=== PATIENT | female | born 1945 | race Hispanic/Latino ===

== ENCOUNTER → 2018-08-18 | Outpatient (CLI) | payer OTHER, MEDICARE ==
[~2018-08-18] MED LIST: ALBU8.5H8 IH; ASPI81TA40 PO; CALC-1009 PO; CYCL5TAB PO; GABA-531 PO; HYDR25TA PO; LEVO75TA10 PO; METO50TA18 PO; MILK200C4 PO; OMEG-98 PO; SIMV40TA59 PO
== END | disposition home or self-care (01) ==
LOC: RAH 09:11
PROVIDERS: ATTEND Family Medicine
DX: Z12.31 Encounter for screening mammogram for malignant neoplasm of breast (principal)
CPT/HCPCS: 77067

== ENCOUNTER → 2019-08-20 | Outpatient (CLI) | payer OTHER, MEDICARE | END | disposition home or self-care (01) | LOC: RAH 10:32 | PROVIDERS: ATTEND Family Medicine | DX: Z12.31 Encounter for screening mammogram for malignant neoplasm of breast (principal) | CPT/HCPCS: 77067 ==

== ENCOUNTER → 2020-08-20 | Outpatient (CLI) | payer OTHER, MEDICARE | END | disposition home or self-care (01) | LOC: RAH 09:23 | PROVIDERS: ATTEND Family Medicine | DX: Z12.31 Encounter for screening mammogram for malignant neoplasm of breast (principal) | CPT/HCPCS: 77067 ==

== ENCOUNTER → 2022-08-27 | Outpatient (CLI) | payer OTHER, MEDICARE | END | disposition home or self-care (01) | LOC: RAH 11:40 | PROVIDERS: ATTEND Family Medicine | DX: Z12.31 Encounter for screening mammogram for malignant neoplasm of breast (principal) | CPT/HCPCS: 77067 ==

== ENCOUNTER 2022-12-17 20:37 | Emergency (ER) | payer OTHER, MEDICARE ==
[~2022-12-17] VITALS: Ht 147.3 cm; Wt 85.3 kg
[2022-12-17 21:46] LABS: APPEARANCE,URINE CLEAR (CLEAR); BILIRUBIN,URINE NEGATIVE (NEGATIVE); COLOR,URINE LIGHT-YELLOW (YELLOW); GLUCOSE, URINE (UA) NEGATIVE (NEGATIVE); KETONES,URINE NEGATIVE (NEGATIVE); LEUKOCYTE ESTERASE ,URINE 25 Leu/uL (NEGATIVE); NITRATE,URINE 2+ (NEGATIVE); OCCULT BLOOD,URINE NEGATIVE (NEGATIVE); PH,URINE 5.5 (5.0-8.0); PROTEIN,URINE NEGATIVE (NEGATIVE); UROBILINOGEN,URINE 0.2 mg/dL (0.2-1.0)
[2022-12-17 22:02] LABS: BACTERIA,URINE RARE /HPF (None Seen); MUCUS,URINE RARE LPF (None Seen); SQUAMOUS EPITHELIAL CELL,UR FEW /HPF (0-2)
[2022-12-17 22:21] LABS: BASOPHILS % (AUTO) 0.4 % (0.0-5.0); EOSINOPHILS % (AUTO) 1.6 % (0.0-8.0); HEMATOCRIT 43.5 % (36-48); LYMPHOCYTES % (AUTO) 30.6 % (21.0-51.0); MEAN CORPUSCULAR HEMOGLOBIN 28.3 pg (27.0-33.0); MEAN CORPUSCULAR HGB CONC 32.4 g/dL (32.0-36.0); MEAN CORPUSCULAR VOLUME 87.3 fL (79-99); MONOCYTES % (AUTO) 5.6 % (3.0-13.0); NEUTROPHILS % (AUTO) 61.5 % (40.0-77.0); PLATELET COUNT (AUTO) 149 K/uL (130-400); RED BLOOD CELL COUNT(AUTO) 4.98 MIL/uL (4.00-5.50); RED CELL DISTRIBUTION WIDTH 13.3 % (11.0-15.5); WHITE BLOOD COUNT (AUTO) 7.7 K/uL (4.8-10.8)
[2022-12-17] MEDS ORDERED: CEFTRIAXONE 1G VIAL IVP STA (22:28)
[2022-12-17] MEDS ORDERED: HYDRALAZINE 20MG/ML VIAL IV ONE (22:30)
[2022-12-17 22:55] LABS: CREATININE 0.8 mg/dL (0.5-1.5); POTASSIUM 3.2 mmol/L (3.5-5.1)
[2022-12-17 23:00] LABS: ALBUMIN 3.4 g/dL (3.5-5.0); MAGNESIUM 1.8 mg/dL (1.80-2.40)
[2022-12-17] MEDS ORDERED: POTASSIUM BICARB/CIT AC 25 MEQ TABLET.EFF PO ONE (23:30)
[2022-12-18] MEDS ORDERED: HYDRALAZINE 20MG/ML VIAL IV ONE
[2022-12-18 00:31] VITALS: BP 142/58
[2022-12-18] MEDS ORDERED: MACR100 PO (00:39)
== END 2022-12-18 00:44 | disposition home or self-care (01) ==
LOC: EDH 20:37
DX: I10 Essential (primary) hypertension (principal); N39.0 Urinary tract infection, site not specified; M79.602 Pain in left arm; E11.9 Type 2 diabetes mellitus without complications; E78.00 Pure hypercholesterolemia, unspecified; Z79.82 Long term (current) use of aspirin; Z79.899 Other long term (current) drug therapy
CPT/HCPCS: 99285; 96374; 96375; 83735; 84484; 80053; 85025; 87077; 87088; 87186; 81001; 36415; 96376; 93005 ×2; J0360; J0696

== ENCOUNTER → 2023-02-12 | Outpatient (CLI) | payer OTHER, MEDICARE ==
[~2023-02-12] MED LIST changes: +MACR100 PO
== END | disposition home or self-care (01) ==
LOC: SHCH 10:00
PROVIDERS: ATTEND Internal Medicine
DX: I11.9 Hypertensive heart disease without heart failure (principal); R00.1 Bradycardia, unspecified; E11.9 Type 2 diabetes mellitus without complications; E78.5 Hyperlipidemia, unspecified
CPT/HCPCS: 93306

== ENCOUNTER → 2023-08-29 | Outpatient (CLI) | payer OTHER, MEDICARE | END | disposition home or self-care (01) | LOC: RAH 08:40 | PROVIDERS: ATTEND Family Medicine | DX: Z12.31 Encounter for screening mammogram for malignant neoplasm of breast (principal) | CPT/HCPCS: 77067 ==

== ENCOUNTER 2024-04-23 00:39 | Emergency (ER) | payer OTHER, MEDICARE ==
[~2024-04-23] VITALS: Ht 147.3 cm; Wt 81.6 kg
[2024-04-23 01:26] LABS: BASOPHILS # (AUTO) 0.02 K/uL (0.00-0.20); BASOPHILS % (AUTO) 0.3 % (0.0-5.0); EOSINOPHILS # (AUTO) 0.16 K/uL (0.00-0.70); EOSINOPHILS % (AUTO) 2.1 % (0.0-8.0); HEMATOCRIT 38.5 % (36-48); IMMATURE GRANULOCYTE ABSOLUTE 0.02 K/uL (0-1); LYMPHOCYTES # (AUTO) 2.4 K/uL (1.0-4.8); LYMPHOCYTES % (AUTO) 31.6 % (21.0-51.0); MEAN CORPUSCULAR HEMOGLOBIN 28.8 pg (27.0-33.0); MEAN CORPUSCULAR HGB CONC 32.7 g/dL (32.0-36.0); MEAN CORPUSCULAR VOLUME 88.1 fL (79-99); MONOCYTES # (AUTO) 0.7 K/uL (0.1-1.0); MONOCYTES % (AUTO) 9.5 % (3.0-13.0); NEUTROPHILS # (AUTO) 4.3 K/uL (1.8-7.7); NEUTROPHILS % (AUTO) 56.2 % (40.0-77.0); PLATELET COUNT (AUTO) 145 K/uL (130-400); RED BLOOD CELL COUNT(AUTO) 4.37 MIL/uL (4.00-5.50); RED CELL DISTRIBUTION WIDTH 13.2 % (11.0-15.5); WHITE BLOOD COUNT (AUTO) 7.6 K/uL (4.8-10.8)
[2024-04-23 01:34] LABS: CREATININE 0.8 mg/dL (0.5-1.0); POTASSIUM 3.5 mmol/L (3.5-5.1)
[2024-04-23 01:38] LABS: INR 0.98 (0.85-1.15); PARTIAL THROMBOPLASTIN TIME 33.4 SEC (26.3-35.5); PROTHROMBIN TIME 10.4 SEC (9.6-11.6)
[2024-04-23 01:39] LABS: ALBUMIN 3.2 g/dL (3.5-5.0); BILIRUBIN,TOTAL 0.3 mg/dL (0.2-1.0); TOTAL PROTEIN, SERUM 6.8 g/dL (6.0-8.3)
[2024-04-23 03:59] VITALS: BP 143/82; PULSE 68; RESP 16; O2SAT 99
== END 2024-04-23 04:01 | disposition home or self-care (01) ==
LOC: EDH 00:39
DX: M79.651 Pain in right thigh (principal); R53.1 Weakness; M54.50 Low back pain, unspecified; E11.9 Type 2 diabetes mellitus without complications; E78.00 Pure hypercholesterolemia, unspecified; Z87.442 Personal history of urinary calculi; Z79.899 Other long term (current) drug therapy; Z79.2 Long term (current) use of antibiotics; Z79.82 Long term (current) use of aspirin; Z98.890 Other specified postprocedural states
CPT/HCPCS: 36415; 72131; 80053; 85025; 85610; 85730; 93971

== ENCOUNTER 2024-07-25 17:46 | Emergency (ER) | payer OTHER, MEDICARE ==
[~2024-07-25] VITALS: Ht 152.4 cm; Wt 81.6 kg
[2024-07-25] MEDS ORDERED: ketOROlac 15MG/ML VIAL (15MG/ML) IV ONE (18:30)
[2024-07-25] MEDS ORDERED: ondanSETRON 4MG INJ IVP ONE (18:30)
[2024-07-25] MEDS ORDERED: 0.9%NACL 1000ML 1,000 ML IV ONE (18:30)
[2024-07-25] MEDS ORDERED: ACET-2079 PO (19:14)
[2024-07-25 19:21] LABS: BASOPHILS # (AUTO) 0.04 K/uL (0.00-0.20); BASOPHILS % (AUTO) 0.5 % (0.0-5.0); EOSINOPHILS % (AUTO) 2.6 % (0.0-8.0); HEMATOCRIT 39.3 % (36-48); IMMATURE GRANULOCYTE ABSOLUTE 0.03 K/uL (0-1); LYMPHOCYTES # (AUTO) 2.2 K/uL (1.0-4.8); LYMPHOCYTES % (AUTO) 28.6 % (21.0-51.0); MEAN CORPUSCULAR HEMOGLOBIN 29.4 pg (27.0-33.0); MEAN CORPUSCULAR HGB CONC 32.3 g/dL (32.0-36.0); MONOCYTES # (AUTO) 0.6 K/uL (0.1-1.0); MONOCYTES % (AUTO) 8.4 % (3.0-13.0); NEUTROPHILS # (AUTO) 4.6 K/uL (1.8-7.7); NEUTROPHILS % (AUTO) 59.5 % (40.0-77.0); PLATELET COUNT (AUTO) 174 K/uL (130-400); RED BLOOD CELL COUNT(AUTO) 4.32 MIL/uL (4.00-5.50); RED CELL DISTRIBUTION WIDTH 13.2 % (11.0-15.5); WHITE BLOOD COUNT (AUTO) 7.7 K/uL (4.8-10.8)
[2024-07-25 19:26] LABS: POTASSIUM 3.7 mmol/L (3.5-5.1)
[2024-07-25 19:32] VITALS: BP 158/60; PULSE 64; RESP 18; TEMP 98.1; O2SAT 97
[2024-07-25] MEDS: ketOROlac 30MG VIAL (30MG/ML) IM ONE (19:39)
[2024-07-25] MEDS: acetaMINOPHEN WITH coDEINE 1 TAB TAB PO ONE (19:41)
== END 2024-07-25 20:15 | disposition home or self-care (01) ==
LOC: EDH 17:46
DX: M54.42 Lumbago with sciatica, left side (principal); E11.9 Type 2 diabetes mellitus without complications; E78.00 Pure hypercholesterolemia, unspecified; Z79.82 Long term (current) use of aspirin; Z79.890 Hormone replacement therapy; Z79.899 Other long term (current) drug therapy
CPT/HCPCS: 99285; 74176; 80048; 85025; 36415; 96372; J1885

== ENCOUNTER 2025-08-25 17:33 | Emergency (ER) | payer OTHER, MEDICARE ==
[~2025-08-25] VITALS: Ht 149.9 cm; Wt 78.9 kg
[~2025-08-25 17:33] MED LIST changes: +ACET-2079 PO; -CYCL5TAB PO; +CYCL5TAB3 PO
--- NOTE | 2025-08-25 18:23 | HMCIMG ---
EXAM: CT Head Without IV contrast. CLINICAL HISTORY: fall TECHNIQUE: Axial computed tomography images of the head/brain without intravenous contrast. COMPARISON: None provided. FINDINGS: BRAIN: No acute bleed or infarct. Chronic ischemic and atrophic changes. VENTRICLES: No hydrocephalus. ORBITS: The orbits are unremarkable. SINUSES AND MASTOIDS: The paranasal sinuses and mastoid air cells are clear. BONES: No fracture. SOFT TISSUES: Mild right periorbital soft tissue swelling. IMPRESSION: 1. No acute bleed or infarct. Chronic ischemic and atrophic changes. 2. Mild right periorbital soft tissue swelling. /[place]
--- NOTE | 2025-08-25 18:25 | HMCIMG ---
EXAM: CT Cervical Spine Without IV contrast. CLINICAL HISTORY: fall TECHNIQUE: Axial computed tomography images of the cervical spine without intravenous contrast. Sagittal and coronal reformatted images were generated. COMPARISON: None provided. FINDINGS: ALIGNMENT: Straightening of the cervical spine which can be seen with paraspinal muscle spasm. DEGENERATIVE CHANGES: Mild to moderate multilevel degenerative changes which are more pronounced in the lower cervical spine. SOFT TISSUES: The prevertebral soft tissues are within normal limits. BONES: No fracture or dislocation in the cervical spine. IMPRESSION: 1. No fracture or dislocation in the cervical spine. 2. Mild to moderate multilevel degenerative changes which are more pronounced in the lower cervical spine. 3. Straightening of the cervical spine which can be seen with paraspinal muscle spasm. /[place]
[2025-08-25] MEDS: HYDROcodone/APAP 5/325 1 TAB TABLET PO ONE (18:28)
--- NOTE | 2025-08-25 19:05 | NUR ---
c removed per md request
--- NOTE | 2025-08-25 19:16 | HMCIMG ---
EXAM: CR right Shoulder, 2 View. CLINICAL HISTORY: fall COMPARISON: None provided. FINDINGS: BONES: No acute fracture or aggressive appearing osseous lesion. JOINTS: No dislocation. Mild acromioclavicular and glenohumeral joint osteoarthritis. SOFT TISSUES: The soft tissues are unremarkable. IMPRESSION: 1. No acute findings. /[place]
--- NOTE | 2025-08-25 19:19 | HMCIMG ---
EXAM: CR Chest, 1 View. CLINICAL HISTORY: fall COMPARISON: None provided. FINDINGS: LUNGS: There is no mass, infiltrate, or acute pulmonary abnormality. PLEURAL SPACES: No pleural effusion or pneumothorax. MEDIASTINUM: Mild cardiomegaly. Pulmonary vasculature and interstitial markings are within normal limits. Atherosclerosis of the thoracic aorta. BONES: No acute osseous abnormality. IMPRESSION: 1. No acute cardiopulmonary findings. 2. Mild cardiomegaly. /[place]
--- NOTE | 2025-08-25 19:58 | HMCIMG ---
EXAM: CT Lumbar Spine Without IV contrast. CLINICAL HISTORY: Fall TECHNIQUE: Axial computed tomography images of the lumbar spine without intravenous contrast. Sagittal and coronal reformatted images were generated. COMPARISON: None provided. FINDINGS: ALIGNMENT: Mild grade I anterolisthesis of L4 over L5 vertebra. DISCS/DEGENERATIVE CHANGES: Moderate to severe thoracic and lumbar spondylosis. Severe multilevel degenerative disc disease at lumbar intervertebral levels with vacuum phenomenon. Disc calcifications at L5-S1 intervertebral level. Multilevel moderate to severe bilateral facet joint arthropathic changes. BONES: No acute fracture or aggressive appearing osseous lesion. SOFT TISSUES: The soft tissues are unremarkable. IMPRESSION: No acute lumbar spine abnormality. Moderate to severe thoracic and lumbar spondylosis. Severe multilevel degenerative disc disease at lumbar intervertebral levels with vacuum phenomenon. Suggested MRI of lumbar spine, if clinically indicated. Multilevel moderate to severe bilateral facet joint arthropathic changes. Mild grade I anterolisthesis of L4 over L5 vertebra. /[place]
--- NOTE | 2025-08-25 20:07 | ERN ---
General Chief Complaint: Mechanical Fall Stated Complaint: FALL Time Seen by MD: 17:37 Time Seen by Midlevel: 17:37 Source: patient History of Present Illness Initial Comments Patient is an 79-year-old female presenting to the emergency department following a mechanical ground level fall that occurred yesterday. Patient states she accidentally tripped on a sidewalk and fell onto her right side. Patient does report brief loss of consciousness. She has a hematoma to her right scalp and pain to her left shoulder and lower back. Denies being on any blood thinners. Allergies: Coded Allergies: No Known Drug Allergies (Unverified Allergy, Unknown, 09/03/16) Home Meds Active Scripts Acetaminophen with Codeine (Acetaminophen-Cod #3 Tablet) 300 Mg-30 Mg Tablet, 1 TAB PO Q4H PRN for MODERATE TO SEVERE PAIN, #15 TAB 0 Refills Prov:MARY TOWNSEND SMALL STOCK FACER 07/25/24 Nitrofurantoin/Nitrofuran Mac (Macrobid) 100 Mg Cap, 1 CAP PO BID for 5 Days, #10 CAP 0 Refills Prov:RA VEGA MD 12/18/22 Cyclobenzaprine HCl (Cyclobenzaprine HCl) 5 Mg Tablet, 5 MG PO BID PRN for PAIN LEVEL 1 TO 3, #10 TAB Prov:WILLIAM MCKENZIE MD 09/03/16 Reported Medications [place]-3S/Dha/Epa/Fish Oil (Fish Oil 1,200 mg Softgel) 1 Each Capsule, 1 EACH PO BID, CAP 09/03/16 Calcium Carb & Cit/Vitamin D3 (Calcium + D3 ER Tablet) 1 Each Tablet.er, 1 EACH PO DAILY, TAB 09/03/16 Aspirin (Aspir-Low) 81 Mg Tablet.dr, 81 MG PO DAILY, TAB 09/03/16 Hydrochlorothiazide (Hydrochlorothiazide) 25 Mg Tablet, 25 MG PO DAILY, TAB 09/03/16 Metoprolol Tartrate (Metoprolol Tartrate) 50 Mg Tablet, 50 MG PO DAILY, TAB 09/03/16 Gabapentin (Gabapentin) 300 Mg Capsule, 300 MG PO BID, CAP 09/03/16 Milk Thistle Seed Extract (Milk Thistle) 200 Mg Capsule, 240 MG PO DAILY, CAP 09/03/16 Simvastatin (ZOCOR) 40 Mg Tablet, 40 MG PO HS, TAB 09/03/16 Albuterol Sulfate (Proair Hfa) 8.5 Gm Hfa.aer.ad, 8.5 GM IH [id number] PRN for WHEEZING 09/03/16 Levothyroxine Sodium (Levothyroxine Sodium) 75 Mcg Tablet, 75 MCG PO DAILY, TAB 09/03/16 Past Medical History Past Medical History: Diabetes-Type II, High Cholesterol, Hypertension Past Surgical History: Surgical History Other: INTESTINAL, Social History Social History: Negative, Lives with family Female( History) History: Not Applicable ROS Dictation CONSTITUTIONAL: Negative except for HPI HEAD/FACE: Negative except for HPI EENT: Negative except for HPI RESPIRATORY: Negative except for HPI GASTROINTESTINAL/ABDOMINAL: Negative except for HPI GENITOURINARY: Negative except for HPI MUSCULOSKELETAL: Negative except for HPI INTEGUMENTARY: Negative except for HPI NEUROLOGICAL/PSYCH: Negative except for HPI HEMATOLOGIC/LYMPHATIC: Negative except for HPI All Systems Negative, Except as noted above. 13 point review of systems assessed and all negative except for above. Physical Exam Physical Exam Dictation Vital Signs reviewed General Appearance: Alert, oriented x 3, no acute distress, well developed, nourished. Head and Face: Right parietal scalp hematoma. Eyes: PERRL, pink conjunctivas, eyelid no trauma, anterior chamber with arcus senilis. Ears: Pinnas intact and no signs of trauma or erythema ear canals clear and no discharge TM no erythema Nose: No discharge, no bleeding. Oropharynx: Mouth normal, tongue pink, pharynx clear,no erythema, tonsils no exudates, no abscesses noted, mucous membrane moist Neck: Supple, non-tender, no thyromegaly, no masses, no JVD, no bruits Breast:Deferred Chest:No tenderness, no crepitus, no paradoxical movement, no retractions Lungs:Clear, well-ventilated, symmetric, no rales, no wheezing, no rhonchi, no stridor, good breath sounds bilaterally Heart: Regular rate, regular rhythm, no murmur, no gallops Vascular: no peripheral edema, Abdomen: Soft, positive bowel sounds, nondistended, no guarding, nontender, no rebound, no masses no hepatomegaly, no splenomegaly, no Talley's sign, no hernias. Rectal: Deferred Genital: Deferred Neurological: Normal speech, motor function intact, sensory function intact Musculoskeletal: Neck nontender, full range of motion, back nontender, full range of motion, Extremities: nontender, full range of motion Skin: Color pink, dry, no turgor, no rash, no lacerations, no abrasions, no contusions. Lymphatic: Deferred MDM MDM: Patient is an 79-year-old female presenting to the emergency department following a mechanical ground level fall that occurred yesterday. Patient states she accidentally tripped on a sidewalk and fell onto her right side. Patient does report brief loss of consciousness. She has a hematoma to her right scalp and pain to her left shoulder and lower back. Denies being on any blood thinners. The patient was initially evaluated by me Juni Hameed PA-C but a trauma level two was activated after mechanism of injury and age was taken into consideration. The patient was seen by Dr. Foster within 10 minutes of arrival. On physical examination the patient has a GCS of 15. She has a right parietal scalp hematoma with some restricted range motion of the left shoulder secondary to pain. CT scan of the head, neck, and lumbar region were taken which did not show any acute fracture or dislocation. X-ray of the left shoulder and chest sh ow no acute abnormalities. The patient will be discharged home with supportive management Differential diagnosis: Contusion, intracranial bleed, skull fracture There are no social concerns with this patient. Prescription drug management Prescriptions will include: None Medical management and examination interpretation discussions were had by me with other qualified healthcare professionals as indicated for the patient's care. ED Course Orders Procedure Category Date Status Time Ct Head/Brain W/O CT 08/25/25 Resulted Contrast 17:42 Ct Cervical Spine W/O CT 08/25/25 Resulted Contrast 17:42 Ct Lumbar Spine W/O CT 08/25/25 Resulted Contrast 17:42 Hydrocodone/Apap PHA 08/25/25 Complete 5/325 ([place] 5/325mg) 18:00 Chest 1vw RAD 08/25/25 Resulted 17:48 Shoulder Comp 2+Vws Lt RAD 08/25/25 Resulted 17:48 *Nursing CPOE 08/25/25 Transmitted Communication: 18:42 Current Medications Medications (Trade) Dose Ordered Sig/Rajat Route PRN Reason Start Time Stop Time Status Last Admin Dose Admin Acetaminophen/ Hydrocodone Bitart (NORco 5/325MG) 1 tab ONCE ONCE PO 08/25/25 18:00 08/25/25 18:01 DC 08/25/25 18:28 Vital Signs Date Time Temp Pulse Resp B/P (MAP) Pulse Ox O2 Delivery O2 Flow Rate FiO2 08/25/25 17:36 97.9 68 18 166/50 97 Room Air 0 DX & DISP Disposition: Discharge Departure Impression: Primary Impression: Scalp contusion Additional Impressions: Fall, Contusion of left shoulder, Lumbar sprain Condition: Stable Referrals: SIN HERRING DO (PCP) Time of Disposition: 20:07 I have reviewed the case, and I agree with, Diagnosis and Plan I performed the substantive portion of the visit. I have reviewed and per sonally made and approve the management plan that is documented in the note by myself or the STEVEN. I acknowledge for responsibility for the patient's management plan. JUNI HAMEED PAC Aug 25, 2025 20:07
[2025-08-25 20:38] VITALS: BP 148/52; PULSE 56; RESP 18; TEMP 98.3; O2SAT 97
== END 2025-08-25 20:33 | disposition home or self-care (01) ==
LOC: EDH 17:33
DX: S33.5XXA Sprain of ligaments of lumbar spine, initial encounter (principal); S00.03XA Contusion of scalp, initial encounter; S40.012A Contusion of left shoulder, initial encounter; E11.9 Type 2 diabetes mellitus without complications; E78.00 Pure hypercholesterolemia, unspecified; I10 Essential (primary) hypertension; Z79.82 Long term (current) use of aspirin; Z79.890 Hormone replacement therapy; Z79.899 Other long term (current) drug therapy; W18.09XA Striking against other object with subsequent fall, initial encounter; Y93.89 Activity, other specified; Y92.480 Sidewalk as the place of occurrence of the external cause; Y99.8 Other external cause status
CPT/HCPCS: 70450; 71045; 72125; 72131; 73030; 99284